=== PATIENT | male | born 1940 | race Caucasian/White ===

== ENCOUNTER 2018-11-17 12:23 | Day surgery (SDC) | payer MEDICARE, OTHER ==
[2018-11-17] VITALS (10 sets, daily range): BP systolic 96–154; BP diastolic 54–70
[~2018-11-17] VITALS: Ht 182.9 cm; Wt 115.1 kg
[2018-11-17] MEDS ORDERED: diphenhydrAMINE 25mg capsule PO ONE (12:45)
[2018-11-17] MEDS ORDERED: normal saline 1000ml 1,000 ML IV SCH (12:45)
[2018-11-17] MEDS ORDERED: hydrocortisone sod succ/PF 250mg/2ml inj. IV ONE (12:45)
[2018-11-17 13:19] LABS: BASOPHILS # (AUTO) 0.1 X10'3 (0-0.2); BASOPHILS % (AUTO) 0.9 % (0-1); EOSINOPHILS # (AUTO) 0.2 X10'3 (0-0.9); EOSINOPHILS % (AUTO) 2.5 % (0-6); HEMATOCRIT 42.6 % (42.0-52.0); HEMOGLOBIN 14.1 g/dl (14.0-17.9); LYMPHOCYTES # (AUTO) 1.6 X10'3 (1.1-4.8); LYMPHOCYTES % (AUTO) 22.9 % (21-51); MEAN CORPUSCULAR HEMOGLOBIN 29.9 PG (27.0-31.0); MEAN CORPUSCULAR VOLUME 90.5 FL (78-98); MEAN PLATELET VOLUME 8.3 FL (7.4-10.4); MONOCYTES # (AUTO) 0.7 X10'3 (0-0.9); MONOCYTES % (AUTO) 9.6 % (2-12); NEUTROPHILS # (AUTO) 4.6 X10'3 (1.8-7.7); NEUTROPHILS % (AUTO) 64.1 % (42-75); PLATELET COUNT 147 X10'3 (140-440); RED CELL DISTRIBUTION WIDTH 14.1 % (11.5-14.5); WHITE BLOOD COUNT 7.2 X10'3 (4.5-11.0)
[2018-11-17] MEDS ORDERED: LIDOcaine 1% (10mg/ml)w/preservative injection 20ml MDV ONE (13:24)
[2018-11-17] MEDS ORDERED: fentaNYL/PF 50MCG/1 ML 2ML syringe ONE (13:24)
[2018-11-17] MEDS ORDERED: midazolam 2 mg/2 ml injection ONE ×2 (13:24→14:12)
[2018-11-17] MEDS ORDERED: iohexol 350MG/ML 100ml bottle IV ONE ×2 (13:25→14:12)
[2018-11-17] MEDS ORDERED: iohexol 350 MG/ML 50ML vial IV ONE (13:25)
[2018-11-17 13:29] LABS: ALBUMIN 3.5 G/DL (3.4-5.0); ANION GAP 9 (8-16); BLOOD UREA NITROGEN 19 MG/DL (7-18); BUN/CREATININE RATIO 15.1 (5.4-32.0); CALCIUM 8.4 MG/DL (8.5-10.1); CHLORIDE 108 MMOL/L (99-107); CREATININE 1.26 MG/DL (0.60-1.10); GLUCOSE 94 MG/DL (70-104); MAGNESIUM 1.9 MG/DL (1.5-2.4); POTASSIUM 4.2 MMOL/L (3.5-5.1); SODIUM 143 MMOL/L (135-145); TOTAL CARBON DIOXIDE 26.4 MMOL/L (24-32); eGFR 55 ML/MIN
[2018-11-17] MEDS ORDERED: hydrocortisone sod succ/PF 100mg/2ml inj. IV ONE (13:30)
[2018-11-17] MEDS ORDERED: CLON0.1T PO (13:37)
[2018-11-17] MEDS ORDERED: MULT-1085 PO (13:37)
[2018-11-17] MEDS ORDERED: ANDROGEL (13:37)
[2018-11-17] MEDS ORDERED: ASCO-283 (13:37)
[2018-11-17] MEDS ORDERED: ESOM40SU PO (13:37)
[2018-11-17] MEDS ORDERED: ZOLP5TAB2 PO (13:37)
[2018-11-17] MEDS ORDERED: CALC250T2 PO (13:37)
[2018-11-17] MEDS ORDERED: CETI10CA PO (13:37)
[2018-11-17] MEDS ORDERED: ATOR40TA PO (13:37)
[2018-11-17] MEDS ORDERED: ASPI-611 PO (13:37)
[2018-11-17] MEDS ORDERED: GLUC-133 PO (13:37)
[2018-11-17] MEDS ORDERED: heparin 1,000unit/ml 10ml vial 10 ML ONE (14:10)
[2018-11-17] MEDS ORDERED: ticagrelor 90mg tablet ONE (14:28)
== END 2018-11-17 18:30 | disposition home or self-care (01) ==
LOC: SSTAY O 12:23
PROVIDERS: ATTEND Internal Medicine Cardiovascular Disease
DX: I25.110 Atherosclerotic heart disease of native coronary artery with unstable angina pectoris (principal); E78.5 Hyperlipidemia, unspecified; E11.51 Type 2 diabetes mellitus with diabetic peripheral angiopathy without gangrene; I11.0 Hypertensive heart disease with heart failure; I50.20 Unspecified systolic (congestive) heart failure; Z87.891 Personal history of nicotine dependence
CPT/HCPCS: 36415; 80048; 83735; 85025; 85610; 93005; 93458; 99152; 99153; C1725; C1760; C1769; C1874; C1894; C9600; J1644; J2001; J2250; J3010; J7030; Q0163; Q9967; A4620; A6258; J1720

== ENCOUNTER 2018-11-22 21:12 | Inpatient (IN) | payer MEDICARE, OTHER, BC ==
[~2018-11-22] VITALS: Ht 182.9 cm; Wt 112.0 kg
[~2018-11-22 21:12] MED LIST: ANDROGEL; ASCO-283; ASPI-611 PO; ATOR40TA PO; CALC250T2 PO; CETI10CA PO; CLON0.1T PO; ESOM40SU PO; GLUC-133 PO; MULT-1085 PO; ZOLP5TAB2 PO
[2018-11-22 21:57] LABS: BASOPHILS % (AUTO) 0.2 % (0-1); EOSINOPHILS % (AUTO) 0 % (0-6); HEMATOCRIT 36.5 % (42.0-52.0); HEMOGLOBIN 12.2 g/dl (14.0-17.9); LYMPHOCYTES # (AUTO) 1.4 X10'3 (1.1-4.8); LYMPHOCYTES % (AUTO) 11.1 % (21-51); MEAN CORPUSCULAR HEMOGLOBIN 30.1 PG (27.0-31.0); MEAN CORPUSCULAR HGB CONC 33.5 g/dL (33.0-36.5); MEAN PLATELET VOLUME 8.4 FL (7.4-10.4); MONOCYTES # (AUTO) 1.3 X10'3 (0-0.9); MONOCYTES % (AUTO) 10.5 % (2-12); NEUTROPHILS # (AUTO) 9.5 X10'3 (1.8-7.7); NEUTROPHILS % (AUTO) 78.2 % (42-75); PLATELET COUNT 180 X10'3 (140-440); RED BLOOD COUNT 4.06 X10'6 (4.70-6.10); WHITE BLOOD COUNT 12.2 X10'3 (4.5-11.0)
[2018-11-22 22:08] LABS: PARTIAL THROMBOPLASTIN TIME 25 SECONDS (22-32)
[2018-11-22 22:11] LABS: ALANINE AMINOTRANSFERASE 34 U/L (12-78); ALBUMIN 3.5 G/DL (3.4-5.0); ALKALINE PHOSPHATASE 71 IU/L (46-116); ANION GAP 5 (8-16); ASPARTATE AMINO TRANSFERASE 14 U/L (10-37); BILIRUBIN,TOTAL 1.1 MG/DL (0.1-1.0); BLOOD UREA NITROGEN 27 MG/DL (7-18); BUN/CREATININE RATIO 20.5 (5.4-32.0); CALCIUM 8.8 MG/DL (8.5-10.1); CHLORIDE 103 MMOL/L (99-107); CREATININE 1.32 MG/DL (0.60-1.10); GLUCOSE 99 MG/DL (70-104); POTASSIUM 4.2 MMOL/L (3.5-5.1); SODIUM 138 MMOL/L (135-145); TOTAL CARBON DIOXIDE 29.6 MMOL/L (24-32); TOTAL PROTEIN 7.1 G/DL (6.4-8.2); eGFR 52 ML/MIN
[2018-11-23] VITALS (20 sets, daily range): BP systolic 125–167; BP diastolic 59–83
[2018-11-23] MEDS ORDERED: magnesium hydroxide 30ml (MOM) UD suspension PO PRN (00:20)
[2018-11-23] MEDS ORDERED: ondansetron/PF 4mg/2ml inj IV PRN ×2 (00:20→11:45)
[2018-11-23] MEDS ORDERED: acetaminophen 325mg tablet PO PRN ×2 (00:20)
[2018-11-23] MEDS ORDERED: mag hydrox/Alum hydrox/simeth 30ml oral suspension PO PRN (00:20)
[2018-11-23] MEDS ORDERED: TICA90TA PO (00:24)
[2018-11-23] MEDS: normal saline 1000ml 1,000 ML IV SCH ×3 (00:29→16:06)
--- NOTE | 2018-11-23 06:13 | NUR ---
Problems reprioritized. Patient report given, questions answered & plan of care reviewed with Blessing HENRY.
--- NOTE | 2018-11-23 10:49 | NUR ---
Patient left unit to CT at this time via wheelchair accompanied by production technician
[2018-11-23] MEDS ORDERED: ringers solution, lacted 1,000 ML IV SCH (11:41)
[2018-11-23] MEDS ORDERED: ESOMEPRAZOLE 40 MG VIAL IV STA (11:43)
[2018-11-23] MEDS ORDERED: meperidine/PF 25mg/ml syringe IV PRN ×3 (11:45)
[2018-11-23] MEDS ORDERED: morphine 4 MG/ML inj SYRINge IV PRN ×2 (11:45)
[2018-11-23] MEDS ORDERED: proCHLORperazine 10 MG/2 ml inj IV PRN (11:45)
[2018-11-23] MEDS ORDERED: ceFAZolin 1GM/D5W- ADD-VANTAGE 50 ML IV SCH (11:45)
[2018-11-23] MEDS ORDERED: cefazolin/dext.iso 2gm/100ml 100 ML IV ONE (11:58)
[2018-11-23] MEDS ORDERED: heparin 10,000 units/1 ML INJ ONE (12:04)
[2018-11-23] MEDS ORDERED: ceFAZolin 1000mg inj ONE (12:04)
[2018-11-23] MEDS ORDERED: LIDOcaine 1% (10mg/ml) 2ml vial ONE (12:08)
[2018-11-23] MEDS ORDERED: ceFAZolin 2gm in dextrose, iso 100 ML IV ONE (12:10)
[2018-11-23 12:15] LABS: BASOPHILS % (AUTO) 0.4 % (0-1); EOSINOPHILS % (AUTO) 0.4 % (0-6); HEMATOCRIT 35.1 % (42.0-52.0); HEMOGLOBIN 12.1 g/dl (14.0-17.9); LYMPHOCYTES # (AUTO) 1.7 X10'3 (1.1-4.8); LYMPHOCYTES % (AUTO) 18.5 % (21-51); MEAN CORPUSCULAR HEMOGLOBIN 30.3 PG (27.0-31.0); MEAN CORPUSCULAR HGB CONC 34.3 g/dL (33.0-36.5); MEAN CORPUSCULAR VOLUME 88.3 FL (78-98); MONOCYTES # (AUTO) 1.2 X10'3 (0-0.9); MONOCYTES % (AUTO) 12.8 % (2-12); NEUTROPHILS # (AUTO) 6.2 X10'3 (1.8-7.7); NEUTROPHILS % (AUTO) 67.9 % (42-75); PLATELET COUNT 171 X10'3 (140-440); RED BLOOD COUNT 3.98 X10'6 (4.70-6.10); RED CELL DISTRIBUTION WIDTH 14.3 % (11.5-14.5); WHITE BLOOD COUNT 9.1 X10'3 (4.5-11.0)
--- NOTE | 2018-11-23 12:21 | NUR ---
Patient left to OR at this time via bed.
[2018-11-23 12:27] LABS: PARTIAL THROMBOPLASTIN TIME 25 SECONDS (22-32)
[2018-11-23 12:29] LABS: ALANINE AMINOTRANSFERASE 32 U/L (12-78); ALBUMIN 3.1 G/DL (3.4-5.0); ALKALINE PHOSPHATASE 62 IU/L (46-116); ANION GAP 6 (8-16); ASPARTATE AMINO TRANSFERASE 11 U/L (10-37); BILIRUBIN,TOTAL 1.1 MG/DL (0.1-1.0); BLOOD UREA NITROGEN 29 MG/DL (7-18); CALCIUM 8.7 MG/DL (8.5-10.1); CHLORIDE 106 MMOL/L (99-107); CREATININE 1.26 MG/DL (0.60-1.10); GLUCOSE 88 MG/DL (70-104); POTASSIUM 3.8 MMOL/L (3.5-5.1); SODIUM 140 MMOL/L (135-145); TOTAL CARBON DIOXIDE 28.4 MMOL/L (24-32); TOTAL PROTEIN 6.2 G/DL (6.4-8.2); eGFR 55 ML/MIN
[2018-11-23] MEDS ORDERED: propofol inj 20 ML IV ONE (12:44)
[2018-11-23] MEDS ORDERED: LIDOcaine 2% (20mg/ml) 5ml vial ONE (12:44)
[2018-11-23] MEDS ORDERED: midazolam 2 mg/2 ml injection ONE (12:44)
[2018-11-23] MEDS ORDERED: fentaNYL /PF 50mcg/ml 5ml ampule ONE (12:44)
[2018-11-23] MEDS ORDERED: dexamethasone sod phosphate 4mg/ml inj. ONE (13:04)
[2018-11-23] MEDS ORDERED: ondansetron/PF 4mg/2ml inj ONE (13:04)
[2018-11-23] MEDS ORDERED: BUPIVAcaine/PF 2.5 mg/ml (0.25%) 30ml vial ONE (13:43)
[2018-11-23] MEDS ORDERED: HYDROcodone/acetaminophen 10/325mg tab PO PRN (13:50)
--- NOTE | 2018-11-23 14:00 | NUR ---
Received from OR via , accompanied by Anesthesiologist DR COSBY and report given by Anesthesiolgist. AWAKENS TO VOICE. VITALS STABLE. DRESSING DI. NAEL PAIN. PALPABLE RT PEDAL PULSE.
--- NOTE | 2018-11-23 14:40 | NUR ---
Report called to receiving nurse. Transferred via BED Belongings . Special Issues communicated to receiving nurse. AWAKE AND ORIENTED. VITALS STABLE. DRESSING DI. NAEL PAIN. TO SURGICAL RM 354C AT THIS TIME.
[2018-11-23] MEDS ORDERED: morphine 2 MG/ML inj. syringe IV PRN (15:00)
[2018-11-23] MEDS: HYDROcodone/acetaminophen 5mg/325mg tablet PO PRN (15:42)
[2018-11-23] MEDS: ceFAZolin 1GM/D5W- ADD-VANTAGE 50 ML IV SCH ×2 (16:40→23:39)
[2018-11-23] MEDS ORDERED: zolpidem 5mg tablet PO PRN (17:35)
--- NOTE | 2018-11-23 18:34 | NUR ---
Received report from Blessing HENRY pt is awake and alert eating dinner in no apparent distress
[2018-11-23] MEDS: cloNIDine 0.1 mg tablet PO SCH (19:47)
[2018-11-23] MEDS: ticagrelor 90mg tablet PO SCH (19:47)
[2018-11-23] MEDS: HYDROcodone/acetaminophen 10/325mg tab PO PRN ×2 (19:47→23:39)
[2018-11-24] MEDS: normal saline 1000ml 1,000 ML IV SCH ×2 (01:45→12:06)
[2018-11-24] MEDS: HYDROcodone/acetaminophen 10/325mg tab PO PRN ×3 (03:53→13:21)
[2018-11-24 06:08] LABS: BASOPHILS % (AUTO) 0.1 % (0-1); EOSINOPHILS % (AUTO) 0 % (0-6); HEMATOCRIT 31.6 % (42.0-52.0); HEMOGLOBIN 10.7 g/dl (14.0-17.9); LYMPHOCYTES # (AUTO) 0.7 X10'3 (1.1-4.8); LYMPHOCYTES % (AUTO) 6.6 % (21-51); MEAN CORPUSCULAR HEMOGLOBIN 30.2 PG (27.0-31.0); MEAN CORPUSCULAR HGB CONC 33.9 g/dL (33.0-36.5); MEAN PLATELET VOLUME 8.3 FL (7.4-10.4); MONOCYTES # (AUTO) 1.4 X10'3 (0-0.9); MONOCYTES % (AUTO) 12.8 % (2-12); NEUTROPHILS # (AUTO) 9.1 X10'3 (1.8-7.7); NEUTROPHILS % (AUTO) 80.5 % (42-75); PLATELET COUNT 171 X10'3 (140-440); RED BLOOD COUNT 3.55 X10'6 (4.70-6.10); WHITE BLOOD COUNT 11.3 X10'3 (4.5-11.0)
--- NOTE | 2018-11-24 06:15 | NUR ---
Gave report to Georgette HENRY pt is resting in no apparent distress, call light and items of freq use within reach.
[2018-11-24 06:32] LABS: ALBUMIN 2.7 G/DL (3.4-5.0); ANION GAP 7 (8-16); BLOOD UREA NITROGEN 26 MG/DL (7-18); BUN/CREATININE RATIO 21.1 (5.4-32.0); CALCIUM 7.9 MG/DL (8.5-10.1); CHLORIDE 105 MMOL/L (99-107); CREATININE 1.23 MG/DL (0.60-1.10); GLUCOSE 118 MG/DL (70-104); POTASSIUM 4.2 MMOL/L (3.5-5.1); SODIUM 137 MMOL/L (135-145); TOTAL CARBON DIOXIDE 25.2 MMOL/L (24-32); eGFR 57 ML/MIN
[2018-11-24 07:13] VITALS: BP 121/60
[2018-11-24] MEDS: cloNIDine 0.1 mg tablet PO SCH ×2 (07:51→19:20)
[2018-11-24] MEDS: cetirizine 10mg tablet PO SCH (07:51)
[2018-11-24] MEDS: atorvastatin 20mg tablet PO SCH (07:52)
[2018-11-24] MEDS: ticagrelor 90mg tablet PO SCH ×2 (07:53→19:19)
[2018-11-24] MEDS: pantoprazole 40mg Tablet.DR PO SCH (07:53)
[2018-11-24] MEDS: aspirin 81mg tablet.DR PO SCH (07:53)
[2018-11-24] MEDS: multivitamins, therapeutics tablet PO SCH (07:53)
[2018-11-24] MEDS ORDERED: CALCIUM CITRATE 250 MG PO SCH (08:00)
[2018-11-24] MEDS ORDERED: non-formulary drug (Gluc 2KCL/Chondr/Coll Hy/Hy Ac (Glucosamine & Chondroitin Cap) 1 EACH) PO SCH (08:00)
--- NOTE | 2018-11-24 18:01 | NUR ---
Problems reprioritized. Patient report given, questions answered & plan of care reviewed with CARL Turner.
--- NOTE | 2018-11-24 18:16 | NUR ---
Received report from Georgette HENRY pt awake and alert eating dinner in no apparent distress
[2018-11-24] MEDS: HYDROcodone/acetaminophen 5mg/325mg tablet PO PRN ×2 (18:26→23:55)
[2018-11-24 19:00] VITALS: BP 113/58
[2018-11-24] MEDS: docusate sod 100mg capsule PO SCH (19:19)
[2018-11-25] VITALS: BP 140/55
[2018-11-25 06:00] LABS: BASOPHILS % (AUTO) 0.3 % (0-1); EOSINOPHILS # (AUTO) 0.1 X10'3 (0-0.9); EOSINOPHILS % (AUTO) 1.6 % (0-6); HEMATOCRIT 31.4 % (42.0-52.0); HEMOGLOBIN 10.7 g/dl (14.0-17.9); LYMPHOCYTES # (AUTO) 1.4 X10'3 (1.1-4.8); LYMPHOCYTES % (AUTO) 15.7 % (21-51); MEAN CORPUSCULAR HEMOGLOBIN 30.5 PG (27.0-31.0); MEAN CORPUSCULAR VOLUME 89.7 FL (78-98); MEAN PLATELET VOLUME 8.1 FL (7.4-10.4); MONOCYTES # (AUTO) 1.3 X10'3 (0-0.9); MONOCYTES % (AUTO) 14.5 % (2-12); NEUTROPHILS % (AUTO) 67.9 % (42-75); PLATELET COUNT 169 X10'3 (140-440); RED CELL DISTRIBUTION WIDTH 14.2 % (11.5-14.5); WHITE BLOOD COUNT 8.9 X10'3 (4.5-11.0)
--- NOTE | 2018-11-25 06:26 | NUR ---
Gave report to Jane HENRY pt is resting on RA in no apparent distress, call light and items of freq use within reach.
[2018-11-25 06:39] LABS: ALBUMIN 2.7 G/DL (3.4-5.0); ANION GAP 9 (8-16); BLOOD UREA NITROGEN 28 MG/DL (7-18); CALCIUM 8.1 MG/DL (8.5-10.1); CHLORIDE 106 MMOL/L (99-107); CREATININE 1.47 MG/DL (0.60-1.10); GLUCOSE 103 MG/DL (70-104); POTASSIUM 4.3 MMOL/L (3.5-5.1); SODIUM 143 MMOL/L (135-145); TOTAL CARBON DIOXIDE 27.8 MMOL/L (24-32); eGFR 46 ML/MIN
[2018-11-25 07:20] VITALS: BP 112/55
[2018-11-25] MEDS: cetirizine 10mg tablet PO SCH (07:46)
[2018-11-25] MEDS: atorvastatin 20mg tablet PO SCH (07:46)
[2018-11-25] MEDS: aspirin 81mg tablet.DR PO SCH (07:46)
[2018-11-25] MEDS: ticagrelor 90mg tablet PO SCH ×2 (07:46→19:27)
[2018-11-25] MEDS: docusate sod 100mg capsule PO SCH ×2 (07:46→19:27)
[2018-11-25] MEDS: multivitamins, therapeutics tablet PO SCH (07:46)
[2018-11-25] MEDS: pantoprazole 40mg Tablet.DR PO SCH (07:46)
[2018-11-25] MEDS: cloNIDine 0.1 mg tablet PO SCH ×2 (07:46→19:27)
[2018-11-25 11:00] VITALS: BP 111/76
--- NOTE | 2018-11-25 11:12 | NUR ---
Spoke with Dr Nation and received orders to discontinue tele monitor. PCU artist relationship manager
--- NOTE | 2018-11-25 18:09 | NUR ---
Problems reprioritized. Patient report given, questions answered & plan of care reviewed with CARL Vazquez.
--- NOTE | 2018-11-25 18:14 | NUR ---
Received report from Jane HENRY pt is awake and alert eating dinner in no apparent distress, call light and items of freq use within reach
[2018-11-25 19:00] VITALS: BP 106/48
[2018-11-25] MEDS: magnesium hydroxide 30ml (MOM) UD suspension PO SCH (19:27)
[2018-11-25] MEDS: cephalexin 500mg capsule PO SCH (19:27)
--- NOTE | 2018-11-25 20:30 | NUR ---
Patient's daughter, Nicole, called and requested update. Notified Yue. Provided info that the patient ate and walked, appears to be doing well. States she will call back in 30 min to 1 hour to say good night to him. Will continue to monitor.
[2018-11-26 00:13] VITALS: BP 120/57
[2018-11-26] MEDS: cephalexin 500mg capsule PO SCH ×4 (01:03→19:50)
[2018-11-26 04:58] LABS: BASOPHILS # (AUTO) 0.1 X10'3 (0-0.2); BASOPHILS % (AUTO) 0.6 % (0-1); EOSINOPHILS # (AUTO) 0.3 X10'3 (0-0.9); EOSINOPHILS % (AUTO) 2.7 % (0-6); HEMATOCRIT 31.5 % (42.0-52.0); HEMOGLOBIN 10.8 g/dl (14.0-17.9); LYMPHOCYTES # (AUTO) 1.4 X10'3 (1.1-4.8); LYMPHOCYTES % (AUTO) 14.4 % (21-51); MEAN CORPUSCULAR HEMOGLOBIN 30.7 PG (27.0-31.0); MEAN CORPUSCULAR HGB CONC 34.2 g/dL (33.0-36.5); MEAN PLATELET VOLUME 7.7 FL (7.4-10.4); MONOCYTES # (AUTO) 1.4 X10'3 (0-0.9); MONOCYTES % (AUTO) 14.1 % (2-12); NEUTROPHILS # (AUTO) 6.7 X10'3 (1.8-7.7); NEUTROPHILS % (AUTO) 68.2 % (42-75); PLATELET COUNT 173 X10'3 (140-440); RED CELL DISTRIBUTION WIDTH 14.4 % (11.5-14.5); WHITE BLOOD COUNT 9.8 X10'3 (4.5-11.0)
[2018-11-26 05:12] LABS: ALBUMIN 2.7 G/DL (3.4-5.0); ANION GAP 8 (8-16); BLOOD UREA NITROGEN 27 MG/DL (7-18); BUN/CREATININE RATIO 22.3 (5.4-32.0); CALCIUM 8.2 MG/DL (8.5-10.1); CHLORIDE 107 MMOL/L (99-107); CREATININE 1.21 MG/DL (0.60-1.10); GLUCOSE 100 MG/DL (70-104); POTASSIUM 4.3 MMOL/L (3.5-5.1); SODIUM 142 MMOL/L (135-145); TOTAL CARBON DIOXIDE 27.5 MMOL/L (24-32); eGFR 58 ML/MIN
--- NOTE | 2018-11-26 06:23 | NUR ---
GAve report to Marilyn HENRY pt is in no apparent distress, call light and items of freq use within reach.
--- NOTE | 2018-11-26 07:01 | NUR ---
Patient in room [facility]. I have received report from MARGY HENRY and had the opportunity to ask questions and assume patient care.
[2018-11-26 07:04] VITALS: BP 91/60
[2018-11-26] MEDS: pantoprazole 40mg Tablet.DR PO SCH (07:19)
[2018-11-26] MEDS: docusate sod 100mg capsule PO SCH ×2 (07:19→19:51)
[2018-11-26] MEDS: magnesium hydroxide 30ml (MOM) UD suspension PO SCH ×2 (07:19→19:50)
[2018-11-26] MEDS: aspirin 81mg tablet.DR PO SCH (07:19)
[2018-11-26] MEDS: atorvastatin 20mg tablet PO SCH (07:19)
[2018-11-26] MEDS: cetirizine 10mg tablet PO SCH (07:19)
[2018-11-26] MEDS: multivitamins, therapeutics tablet PO SCH (07:20)
[2018-11-26] MEDS: cloNIDine 0.1 mg tablet PO SCH ×2 (07:20→19:50)
[2018-11-26] MEDS: ticagrelor 90mg tablet PO SCH ×2 (07:20→19:50)
--- NOTE | 2018-11-26 08:11 | NUR ---
SPOKE WITH DAUGHTER. SHE HAD QUESTIONS ABOUT PT GOING HOME ON [employer] DEVICE. ANSWERED HER QUESTIONS. SHE ALSO ASKED FOR PT TO HAVE SPONGE BATH. WILL NOTIFY TECH
--- NOTE | 2018-11-26 14:41 | NUR ---
heart healthy diet consult: Pt/daughter request diet ed prior to d/c. Pt/daughter seen by MARQUEZ for heart healthy diet ed. Pt had question regarding food interactions w/ current blood thinner; RD encouraged pt current medication only interacts w/ grapefruit. Pt daughter will be taking care of pt upon d/c. Pt struggled most w/ limitation of added Na and choosing lower Na food options. RD reviewed alternative food options as well as seasonings. RD contact information provided and encouraged pt/daughter to call if any questions. Addendum: 11/26/18 at [address] Amended: Links added.
[2018-11-26] MEDS ORDERED: magnesium citrate 296ml oral solution PO ONE (15:00)
[2018-11-26 17:37] LABS: CLARITY,URINE CLEAR (Clear); COLOR,URINE YELLOW (Yellow); GLUCOSE, URINE NEGATIVE (Neg); KETONES,URINE NEGATIVE (Neg); LEUKOCYTE ESTERASE ,URINE NEGATIVE (Neg); NITRITES, URINE NEGATIVE (Neg); OCCULT BLOOD,URINE LARGE (Neg); PROTEIN,URINE NEGATIVE (Neg); UROBILINOGEN,URINE 0.2 E.U/dL (0.2-1.0)
[2018-11-26 17:41] LABS: UA COLLECTION TYPE URINAL
[2018-11-26 17:43] LABS: BACTERIA,URINE NONE SEEN /HPF (Neg); MUCUS STRANDS NONE SEEN /LPF (Neg); RBC,URINE TNTC /HPF (0-2); SQUAMOUS EPITHELIAL CELL,UR NONE SEEN /LPF (FEW); WBC,URINE NONE SEEN /HPF (0-4)
--- NOTE | 2018-11-26 18:04 | NUR ---
GAVE REPORT TO CHLOE HENYR
--- NOTE | 2018-11-26 18:10 | NUR ---
Patient in room [facility]. I have received report from Marilyn HENRY and had the opportunity to ask questions and assume patient care.
[2018-11-26 19:50] VITALS: BP 127/72
[2018-11-26 20:00] VITALS: BP 119/62
[2018-11-27] VITALS: BP 121/67
[2018-11-27] MEDS: cephalexin 500mg capsule PO SCH ×3 (02:03→13:50)
[2018-11-27 05:32] LABS: BASOPHILS % (AUTO) 0.4 % (0-1); EOSINOPHILS # (AUTO) 0.3 X10'3 (0-0.9); EOSINOPHILS % (AUTO) 2.3 % (0-6); HEMATOCRIT 32.3 % (42.0-52.0); HEMOGLOBIN 10.8 g/dl (14.0-17.9); LYMPHOCYTES # (AUTO) 1.4 X10'3 (1.1-4.8); LYMPHOCYTES % (AUTO) 12.3 % (21-51); MEAN CORPUSCULAR HEMOGLOBIN 30.2 PG (27.0-31.0); MEAN CORPUSCULAR HGB CONC 33.4 g/dL (33.0-36.5); MEAN CORPUSCULAR VOLUME 90.3 FL (78-98); MEAN PLATELET VOLUME 7.7 FL (7.4-10.4); MONOCYTES # (AUTO) 1.4 X10'3 (0-0.9); MONOCYTES % (AUTO) 13.1 % (2-12); NEUTROPHILS % (AUTO) 71.9 % (42-75); PLATELET COUNT 200 X10'3 (140-440); RED BLOOD COUNT 3.58 X10'6 (4.70-6.10); RED CELL DISTRIBUTION WIDTH 14.5 % (11.5-14.5); WHITE BLOOD COUNT 11.1 X10'3 (4.5-11.0)
[2018-11-27 05:35] LABS: ALBUMIN 2.7 G/DL (3.4-5.0); ANION GAP 4 (8-16); BLOOD UREA NITROGEN 27 MG/DL (7-18); BUN/CREATININE RATIO 22.9 (5.4-32.0); CALCIUM 8.5 MG/DL (8.5-10.1); CHLORIDE 104 MMOL/L (99-107); CREATININE 1.18 MG/DL (0.60-1.10); GLUCOSE 109 MG/DL (70-104); POTASSIUM 4.4 MMOL/L (3.5-5.1); SODIUM 137 MMOL/L (135-145); TOTAL CARBON DIOXIDE 29.2 MMOL/L (24-32); eGFR 60 ML/MIN
--- NOTE | 2018-11-27 06:20 | NUR ---
Patient in room [facility]. I have received report from Deepthi HENRY and had the opportunity to ask questions and assume patient care.
--- NOTE | 2018-11-27 06:31 | NUR ---
Problems reprioritized. Patient report given, questions answered & plan of care reviewed with Ila HENRY.
[2018-11-27 07:11] VITALS: BP 104/53
[2018-11-27] MEDS: multivitamins, therapeutics tablet PO SCH (07:44)
[2018-11-27] MEDS: aspirin 81mg tablet.DR PO SCH (07:44)
[2018-11-27] MEDS: cloNIDine 0.1 mg tablet PO SCH (07:44)
[2018-11-27] MEDS: ticagrelor 90mg tablet PO SCH (07:44)
[2018-11-27] MEDS: atorvastatin 20mg tablet PO SCH (07:44)
[2018-11-27] MEDS: pantoprazole 40mg Tablet.DR PO SCH (07:44)
[2018-11-27] MEDS: magnesium hydroxide 30ml (MOM) UD suspension PO SCH (07:45)
[2018-11-27] MEDS: docusate sod 100mg capsule PO SCH (07:45)
[2018-11-27] MEDS: cetirizine 10mg tablet PO SCH (07:47)
--- NOTE | 2018-11-27 10:49 | NUR ---
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 Pt currently on CHO controlled diet with documented 75-100% PO intake throughout LOS meeting nutrient needs. LBM 11/27. No nutrition diagnosis at this time. Will continue to follow. Recommendations: 1) Diet change to heart healthy given no documented hx of DM; BG well controlled with range 88-118 throughout LOS 2) Wt per rx Addendum: 11/27/18 at [address] Amended: Links added.
[2018-11-27 11:32] VITALS: BP 116/58
--- NOTE | 2018-11-27 14:09 | NUR ---
Dr. Nava in to see patient. aware of hematuria yesterday, none noted today. MD stated to followup with PCP. stated patient okay to discharge with Prevana. to take prevena off on Saturday. F/U with Dr. Nava on Saturday.
--- NOTE | 2018-11-27 16:05 | NUR ---
Patient discharged with all belongings. W/C to front lobby. Family to take pt home.
== END 2018-11-27 15:50 | disposition home health service (06) | DRG 253 ==
LOC: ER 21:16 → SUR 3N 11-23 01:06 → OBSVTOIN 11-23 01:06
PROVIDERS: ADMIT Hospitalist; ATTEND Internal Medicine
PROC: 3E033GC Introduction of Other Therapeutic Substance into Peripheral Vein, Percutaneous Approach (ICD-10-PCS; 2018-11-23)
PROC: 04QK0ZZ Repair Right Femoral Artery, Open Approach (ICD-10-PCS; principal; 2018-11-23 12:35)
DX: T81.718A Complication of other artery following a procedure, not elsewhere classified, initial encounter (principal); I74.2 Embolism and thrombosis of arteries of the upper extremities; N17.9 Acute kidney failure, unspecified; I72.4 Aneurysm of artery of lower extremity; E11.9 Type 2 diabetes mellitus without complications; G47.00 Insomnia, unspecified; I25.10 Atherosclerotic heart disease of native coronary artery without angina pectoris; R31.9 Hematuria, unspecified; K21.9 Gastro-esophageal reflux disease without esophagitis; K59.00 Constipation, unspecified; N28.9 Disorder of kidney and ureter, unspecified; Y84.0 Cardiac catheterization as the cause of abnormal reaction of the patient, or of later complication, without mention of misadventure at the time of the procedure; N40.0 Benign prostatic hyperplasia without lower urinary tract symptoms; Z88.1 Allergy status to other antibiotic agents; Z91.041 Radiographic dye allergy status; Z79.82 Long term (current) use of aspirin; Z79.899 Other long term (current) drug therapy; Z87.891 Personal history of nicotine dependence; Z90.79 Acquired absence of other genital organ(s); Z95.5 Presence of coronary angioplasty implant and graft; Y92.89 Other specified places as the place of occurrence of the external cause
CPT/HCPCS: 36415; 71045; 72192; 80048; 80053; 81001; 84484; 85025; 85610; 85730; 86885; 86900; 86901; 87081; 88304; 93005; 96374; 97116; 97161; 97530; 99285; A4618; A7000; G0378; J0690; J1100; J1644; J2001; J2250; J2270; J2405; J2704; J3010; J3490; J7030; J7040; J7060; J7120

== ENCOUNTER 2018-12-05 19:01 | Inpatient (IN) | payer MEDICARE, OTHER ==
[~2018-12-05] VITALS: Ht 167.6 cm; Wt 121.0 kg
[~2018-12-05 19:01] MED LIST changes: +TICA90TA PO
--- NOTE | 2018-12-05 20:23 | NUR ---
SOREN CALLED BACK AT 20:23. STATED HE WOULD BE IN SOON
[2018-12-05 20:30] LABS: BASOPHILS # (AUTO) 0.1 X10'3 (0-0.2); EOSINOPHILS # (AUTO) 0.2 X10'3 (0-0.9); EOSINOPHILS % (AUTO) 1.7 % (0-6); HEMATOCRIT 37.2 % (42.0-52.0); HEMOGLOBIN 12.2 g/dl (14.0-17.9); LYMPHOCYTES # (AUTO) 1.1 X10'3 (1.1-4.8); LYMPHOCYTES % (AUTO) 10.1 % (21-51); MEAN CORPUSCULAR HEMOGLOBIN 29.4 PG (27.0-31.0); MEAN CORPUSCULAR HGB CONC 32.8 g/dL (33.0-36.5); MEAN CORPUSCULAR VOLUME 89.6 FL (78-98); MEAN PLATELET VOLUME 7.3 FL (7.4-10.4); MONOCYTES # (AUTO) 1.2 X10'3 (0-0.9); MONOCYTES % (AUTO) 11.1 % (2-12); NEUTROPHILS # (AUTO) 8.5 X10'3 (1.8-7.7); NEUTROPHILS % (AUTO) 76.1 % (42-75); PLATELET COUNT 214 X10'3 (140-440); RED BLOOD COUNT 4.15 X10'6 (4.70-6.10); WHITE BLOOD COUNT 11.1 X10'3 (4.5-11.0)
--- NOTE | 2018-12-05 21:08 | NUR ---
PRODUCTION CONTROL EXPERT AT BEDSIDE NOW FOR US
[2018-12-05 21:11] LABS: ALBUMIN/GLOBULIN RATIO 0.8 (1.1-1.5); ANION GAP 6 (8-16); ASPARTATE AMINO TRANSFERASE 16 U/L (10-37); BILIRUBIN,TOTAL 0.9 MG/DL (0.1-1.0); BLOOD UREA NITROGEN 30 MG/DL (7-18); BUN/CREATININE RATIO 20.3 (5.4-32.0); CALCIUM 8.8 MG/DL (8.5-10.1); CHLORIDE 104 MMOL/L (99-107); CREATININE 1.48 MG/DL (0.60-1.10); GLUCOSE 99 MG/DL (70-104); POTASSIUM 4.2 MMOL/L (3.5-5.1); SODIUM 140 MMOL/L (135-145); TOTAL CARBON DIOXIDE 29.7 MMOL/L (24-32); TOTAL PROTEIN 6.6 G/DL (6.4-8.2); eGFR 46 ML/MIN
[2018-12-05 21:12] LABS: ALANINE AMINOTRANSFERASE 27 U/L (12-78); ALKALINE PHOSPHATASE 77 IU/L (46-116)
--- NOTE | 2018-12-05 21:23 | NUR ---
PAGED [facility] TO CALL Adam PURI AT 21:23
[2018-12-05] MEDS ORDERED: vancomycin/NS 1 GM ADD-VANTAGE 250 ML IV ONE (21:50)
--- NOTE | 2018-12-05 22:16 | NUR ---
PT UPDATED THAT HE WILL NEED TO BE ADMITTED. PRESLEY PURI REQUESTS WOUND CULTURE. DR. RAE HAS BEEN CONSULTED. RADHA REMAINS AT BEDSIDE.
[2018-12-05] MEDS ORDERED: OMEP40CA13 PO (23:04)
[2018-12-05] MEDS ORDERED: OMEP20CA11 PO (23:04)
[2018-12-05] MEDS ORDERED: TEST75GE TOP (23:04)
--- NOTE | 2018-12-05 23:22 | NUR ---
PT AWAITING HOSPITALIST. DAUGHTER REMAINS AT BEDSIDE PLACED ON 2 LITER NC FOR SATS 88%, NOW 92-94%. pT WITH MINIMAL PAIN TO RIGHT GROIN, ONLY WITH MVOVEMENT.
[2018-12-06] VITALS (8 sets, daily range): BP systolic 102–129; BP diastolic 55–69
[2018-12-06] MEDS ORDERED: HYDROcodone/acetaminophen 10/325mg tab PO PRN
[2018-12-06] MEDS ORDERED: acetaminophen 325mg tablet PO PRN ×2
[2018-12-06] MEDS ORDERED: morphine 2 MG/ML inj. syringe IV PRN
[2018-12-06] MEDS ORDERED: magnesium hydroxide 30ml (MOM) UD suspension PO PRN
[2018-12-06] MEDS ORDERED: mag hydrox/Alum hydrox/simeth 30ml oral suspension PO PRN
--- NOTE | 2018-12-06 01:05 | NUR ---
PATIENT ADMITTED TO ROOM 340B FROM ER FOR CELLULITIS OF THE RIGHT GROIN POST OP WOUND. PLACED COMFORTABLE IN BED. VITAL SIGNS TAKEN AND RECORDED.
[2018-12-06] MEDS: morphine 2 MG/ML inj. syringe IV PRN ×2 (01:26→19:43)
--- NOTE | 2018-12-06 05:46 | NUR ---
PATIENT REQUESTS LEFT BEDSIDE RAIL DOWN. PATIENT ALERT AND ORIENTED.
--- NOTE | 2018-12-06 06:30 | NUR ---
Problems reprioritized. Patient report given, questions answered & plan of care reviewed with LAURIE HENRY.
--- NOTE | 2018-12-06 06:53 | NUR ---
Patient in room [facility]. I have received report from Lizett HENRY and had the opportunity to ask questions and assume patient care.
[2018-12-06] MEDS: TESTOSTERONE TP SCH (08:00)
[2018-12-06] MEDS ORDERED: non-formulary drug (Gluc 2KCL/Chondr/Coll Hy/Hy Ac (Glucosamine & Chondroitin Cap) 1 EACH) PO SCH (08:00)
[2018-12-06] MEDS ORDERED: vancomycin/NS 1 GM ADD-VANTAGE 250 ML IV SCH (08:00)
[2018-12-06] MEDS: multivitamins, therapeutics tablet PO SCH (08:07)
[2018-12-06] MEDS: cloNIDine 0.1 mg tablet PO SCH ×2 (08:07→20:14)
[2018-12-06] MEDS: pantoprazole 40mg Tablet.DR PO SCH (08:08)
[2018-12-06] MEDS: cetirizine 10mg tablet PO SCH (08:08)
[2018-12-06] MEDS: atorvastatin 20mg tablet PO SCH (08:08)
[2018-12-06] MEDS: aspirin 81mg tablet.DR PO SCH (08:22)
[2018-12-06] MEDS: ticagrelor 90mg tablet PO SCH ×2 (08:22→20:14)
--- NOTE | 2018-12-06 08:24 | NUR ---
Dr. Haji made rounds talked to the patient about the proposed surgery and also spoke to the patient's daughter on the phone. Patient and daughter both agreed with the plan. Per Dr. Haji, Aspirin and Brilinta are okay to give due to heart stent history. Patient already ate breakfast but will be NPO after the breakfast
[2018-12-06] MEDS ORDERED: ringers solution, lacted 1,000 ML IV SCH (09:53)
[2018-12-06] MEDS ORDERED: ringers solution, lacted 1,000 ML IV ONE (09:53)
[2018-12-06] MEDS ORDERED: hydrALAZINE 20mg/ml inj. IV PRN (09:55)
[2018-12-06] MEDS ORDERED: ondansetron/PF 4mg/2ml inj IV PRN ×2 (09:55)
[2018-12-06] MEDS ORDERED: morphine 4 MG/ML inj SYRINge IV PRN ×2 (09:55)
[2018-12-06] MEDS ORDERED: labetalol 20mg/4ml (5mg/ml) syringe IV PRN (09:55)
[2018-12-06] MEDS ORDERED: fentaNYL/PF 50MCG/1 ML 2ML syringe IV PRN ×2 (09:55)
[2018-12-06] MEDS ORDERED: famotidine 20mg tablet PO ONE (10:15)
--- NOTE | 2018-12-06 10:23 | NUR ---
Report given to the SHAKE BACKBOARD NOTCHER. Vancomycin IV infusing
[2018-12-06] MEDS ORDERED: LIDOcaine 1% 30ml preserv. free vial ONE (11:03)
[2018-12-06] MEDS ORDERED: fentaNYL/PF 50MCG/1 ML 2ML syringe ONE (11:07)
[2018-12-06] MEDS ORDERED: MIDAZolam 5mg/5ml vial ONE (11:08)
--- NOTE | 2018-12-06 11:45 | NUR ---
Received from OR via , accompanied by Anesthesiologist DR WALKER and report given by Anesthesiolgist. PT IS AWAKE, ALERT, MOVING EXT X 4, SKIN WARM AND PINK, NO C/O PAIN, WOUND VAC WITH ONE SPONGE TO 125MMHG, SERSANQ DRAINAGE, ONE SPONGE IN WOUND, COLEMAN ICE WATER, PIV LEFT AC 18G WITH NS 100ML/HR, SCD'S, VSS.
--- NOTE | 2018-12-06 12:11 | NUR ---
Report called to receiving nurse. Transferred via BED Belongings . Special Issues communicated to receiving nurse NEEL HENRY. PT IS AWAKE, ALERT, VISITING WITH HIS DAUGHTER, NO C/O PAIN, WOUND VAC 125MMHG, SITE CD, COLEMAN ICE WATER, SCD'S ON, NO C/O PAIN, PIV PATENT WITH NS 100ML/HR, PT MEETS DISCHARGE CRITERIA.
[2018-12-06] MEDS: normal saline 1000ml 1,000 ML IV SCH ×2 (16:11→21:20)
--- NOTE | 2018-12-06 18:38 | NUR ---
Problems reprioritized. Patient report given, questions answered & plan of care reviewed with Pat RN.
[2018-12-06] MEDS: lactobacillus rhamnosus 10,000 MMU CELLS/CAPSULE PO SCH (20:14)
[2018-12-07] VITALS: BP 129/57
[2018-12-07 04:00] VITALS: BP 131/61
[2018-12-07] MEDS: normal saline 1000ml 1,000 ML IV SCH ×2 (05:33→20:39)
[2018-12-07 05:58] LABS: ALBUMIN 2.6 G/DL (3.4-5.0); ANION GAP 6 (8-16); BLOOD UREA NITROGEN 26 MG/DL (7-18); BUN/CREATININE RATIO 21.7 (5.4-32.0); CALCIUM 7.9 MG/DL (8.5-10.1); CHLORIDE 107 MMOL/L (99-107); GLUCOSE 105 MG/DL (70-104); POTASSIUM 4.1 MMOL/L (3.5-5.1); SODIUM 139 MMOL/L (135-145); TOTAL CARBON DIOXIDE 25.8 MMOL/L (24-32); eGFR 58 ML/MIN
--- NOTE | 2018-12-07 06:16 | NUR ---
Patient in room [facility]. I have received report from Pat RN and had the opportunity to ask questions and assume patient care.
[2018-12-07 06:17] LABS: BASOPHILS % (AUTO) 0.5 % (0-1); EOSINOPHILS # (AUTO) 0.2 X10'3 (0-0.9); EOSINOPHILS % (AUTO) 2.3 % (0-6); HEMATOCRIT 34.3 % (42.0-52.0); HEMOGLOBIN 11.6 g/dl (14.0-17.9); LYMPHOCYTES # (AUTO) 0.9 X10'3 (1.1-4.8); LYMPHOCYTES % (AUTO) 9.3 % (21-51); MEAN CORPUSCULAR HEMOGLOBIN 30.6 PG (27.0-31.0); MEAN CORPUSCULAR HGB CONC 33.9 g/dL (33.0-36.5); MEAN CORPUSCULAR VOLUME 90.3 FL (78-98); MEAN PLATELET VOLUME 7.7 FL (7.4-10.4); MONOCYTES # (AUTO) 1.3 X10'3 (0-0.9); MONOCYTES % (AUTO) 13.6 % (2-12); NEUTROPHILS # (AUTO) 7.1 X10'3 (1.8-7.7); NEUTROPHILS % (AUTO) 74.3 % (42-75); PLATELET COUNT 181 X10'3 (140-440); WHITE BLOOD COUNT 9.5 X10'3 (4.5-11.0)
[2018-12-07 07:00] VITALS: BP 119/57
[2018-12-07] MEDS: TESTOSTERONE TP SCH (08:00)
[2018-12-07] MEDS: lactobacillus rhamnosus 10,000 MMU CELLS/CAPSULE PO SCH ×2 (08:25→20:39)
[2018-12-07] MEDS: pantoprazole 40mg Tablet.DR PO SCH (08:26)
[2018-12-07] MEDS: ticagrelor 90mg tablet PO SCH ×2 (08:26→20:39)
[2018-12-07] MEDS: multivitamins, therapeutics tablet PO SCH (08:26)
[2018-12-07] MEDS: cetirizine 10mg tablet PO SCH (08:26)
[2018-12-07] MEDS: aspirin 81mg tablet.DR PO SCH (08:26)
[2018-12-07] MEDS: atorvastatin 20mg tablet PO SCH (08:27)
[2018-12-07] MEDS: cloNIDine 0.1 mg tablet PO SCH ×2 (08:27→20:39)
[2018-12-07] MEDS ORDERED: VANCOMYCIN LEVEL IV ONE (09:30)
[2018-12-07 11:00] VITALS: BP 116/69
[2018-12-07] MEDS: piperacillin/tazo 3.375gm/50ml 50 ML IV SCH (15:58)
[2018-12-07] MEDS: morphine 2 MG/ML inj. syringe IV PRN (16:36)
--- NOTE | 2018-12-07 17:23 | NUR ---
Sent a page message to Dr. Nation regarding patient request for stool softener tonight
[2018-12-07 18:00] VITALS: BP 135/50
--- NOTE | 2018-12-07 18:47 | NUR ---
Patient in room [facility]. I have received report from CARL Chavez and had the opportunity to ask questions and assume patient care.
--- NOTE | 2018-12-07 18:54 | NUR ---
Problems reprioritized. Patient report given, questions answered & plan of care reviewed with Shae HENRY.
[2018-12-07] MEDS ORDERED: bisacodyl 5mg tablet.DR PO SCH (20:00)
--- NOTE | 2018-12-07 20:00 | NUR ---
Patient is refusing to walk until an XR has been completed on his foot. Pt states he injured it back in September and he noticed the pain coming back after he went walking earlier today.
[2018-12-07] MEDS ORDERED: bisacodyl 5mg tablet.DR PO PRN (22:15)
[2018-12-08] VITALS: BP 126/52
[2018-12-08] MEDS: piperacillin/tazo 3.375gm/50ml 50 ML IV SCH ×4 (00:06→23:23)
[2018-12-08] MEDS: HYDROcodone/acetaminophen 5mg/325mg tablet PO PRN ×2 (04:28→13:36)
[2018-12-08 05:21] LABS: BASOPHILS % (AUTO) 0.6 % (0-1); EOSINOPHILS # (AUTO) 0.3 X10'3 (0-0.9); EOSINOPHILS % (AUTO) 3.5 % (0-6); HEMATOCRIT 33.3 % (42.0-52.0); HEMOGLOBIN 11.1 g/dl (14.0-17.9); LYMPHOCYTES # (AUTO) 1.2 X10'3 (1.1-4.8); LYMPHOCYTES % (AUTO) 15.2 % (21-51); MEAN CORPUSCULAR HEMOGLOBIN 30.4 PG (27.0-31.0); MEAN CORPUSCULAR HGB CONC 33.5 g/dL (33.0-36.5); MEAN CORPUSCULAR VOLUME 90.7 FL (78-98); MEAN PLATELET VOLUME 7.3 FL (7.4-10.4); MONOCYTES # (AUTO) 1.2 X10'3 (0-0.9); MONOCYTES % (AUTO) 14.9 % (2-12); NEUTROPHILS # (AUTO) 5.3 X10'3 (1.8-7.7); NEUTROPHILS % (AUTO) 65.8 % (42-75); PLATELET COUNT 164 X10'3 (140-440); RED BLOOD COUNT 3.67 X10'6 (4.70-6.10); RED CELL DISTRIBUTION WIDTH 14.8 % (11.5-14.5); WHITE BLOOD COUNT 8.1 X10'3 (4.5-11.0)
[2018-12-08] MEDS: normal saline 1000ml 1,000 ML IV SCH ×2 (05:21→17:59)
[2018-12-08 05:33] LABS: ALBUMIN 2.4 G/DL (3.4-5.0); ANION GAP 8 (8-16); BLOOD UREA NITROGEN 21 MG/DL (7-18); BUN/CREATININE RATIO 17.2 (5.4-32.0); CALCIUM 7.7 MG/DL (8.5-10.1); CHLORIDE 110 MMOL/L (99-107); CREATININE 1.22 MG/DL (0.60-1.10); GLUCOSE 102 MG/DL (70-104); POTASSIUM 3.9 MMOL/L (3.5-5.1); SODIUM 141 MMOL/L (135-145); TOTAL CARBON DIOXIDE 22.8 MMOL/L (24-32); eGFR 57 ML/MIN
--- NOTE | 2018-12-08 06:30 | NUR ---
Patient in room [facility]. I have received report from Shae HENRY and had the opportunity to ask questions and assume patient care.
--- NOTE | 2018-12-08 06:46 | NUR ---
Problems reprioritized. Patient report given, questions answered & plan of care reviewed with CARL Bauman.
[2018-12-08 07:31] VITALS: BP 124/63
[2018-12-08] MEDS: cetirizine 10mg tablet PO SCH (07:54)
[2018-12-08] MEDS: aspirin 81mg tablet.DR PO SCH (07:55)
[2018-12-08] MEDS: ticagrelor 90mg tablet PO SCH ×2 (07:55→19:33)
[2018-12-08] MEDS: cloNIDine 0.1 mg tablet PO SCH ×2 (07:55→19:33)
[2018-12-08] MEDS: lactobacillus rhamnosus 10,000 MMU CELLS/CAPSULE PO SCH ×2 (07:55→19:33)
[2018-12-08] MEDS: multivitamins, therapeutics tablet PO SCH (07:56)
[2018-12-08] MEDS: pantoprazole 40mg Tablet.DR PO SCH (07:56)
[2018-12-08] MEDS: atorvastatin 20mg tablet PO SCH (07:56)
[2018-12-08] MEDS: hydrocortisone 1% cream 28gm TP SCH ×2 (07:57→19:44)
[2018-12-08] MEDS: TESTOSTERONE TP SCH (08:00)
[2018-12-08] MEDS ORDERED: potassium Cl 20 mEq SR tablet PO PRN ×2 (10:15)
[2018-12-08] MEDS ORDERED: magnesium Cl slow-release 64mg tablet PO PRN (10:15)
[2018-12-08] MEDS ORDERED: magnesium 4gm in 100ml NS 100 ML IV PRN (10:15)
[2018-12-08] MEDS ORDERED: potassium CL 10mEq/100ml bag 100 ML IV PRN (10:15)
[2018-12-08 11:00] VITALS: BP 136/59
[2018-12-08] MEDS: morphine 2 MG/ML inj. syringe IV PRN ×2 (11:03→19:34)
--- NOTE | 2018-12-08 12:57 | NUR ---
WOUND INFECTION EDUCATION PROVIDED BY WOUND CARE 1. Patient instructed to call their primary doctor, or go the ED immediately if any of the following symptoms occur: * Increased pain in wound * Increase in drainage from the wound * Redness in the skin surrounding the wound * Warmth in the skin surrounding the wound * Bleeding from the wound * Temperature of 101 or greater 2. If any of these occur while in the hospital tell a nurse immediately. WOUND VAC EDUCATION PROVIDED BY WOUND CARE 1. Patient instructed to call the Wound Center or their Home Health Agency immediately if: * They notice a change in the color or amount of the fluid in the canister. * Their wound looks more red than usual or has a foul smell. * The skin around their wound looks reddened or irritated. * The dressing feels loose or appears to be loose. * They experience any increase or changes in their pain. * The alarm will not turn off. 2. Patient instructed that they should not be disconnected from suction for more than 2 hours at a time. * If they are not able to get the suction back on, they need to remove the dressing and take all of the foam out of the wound. * Then moisten sterile gauze with normal saline and place on/in the wound. * Change the dressing once a day until arrangements have been made to replace the wound vac dressing. 3. Patient instructed to turn the wound vac machine OFF and call 911 or go to the ED immediately if their canister fills rapidly with blood. 4. If any of these occur while in the hospital tell a nurse immediately. Addendum: 12/08/18 at 1258 by Morelia Sierra RN Amended: Links added.
[2018-12-08] MEDS ORDERED: triamcinolone acetonide 40mg/ml inj IM ONE (15:40)
--- NOTE | 2018-12-08 16:00 | NUR ---
Paged orthotics prosthetics assistant for wrist brace ordered by doctor Tushar, did not hear back from Patient Access Coordinator will try again in the morning.
--- NOTE | 2018-12-08 18:30 | NUR ---
Problems reprioritized. Patient report given, questions answered & plan of care reviewed with Phuong HENRY.
--- NOTE | 2018-12-08 18:30 | NUR ---
Received report from Mitul HENRY, assumed care of patient with Phuong HENRY.
[2018-12-08 20:00] VITALS: BP 143/56
[2018-12-08] MEDS: zolpidem 5mg tablet PO PRN (23:23)
[2018-12-09] VITALS: BP 127/57
[2018-12-09] MEDS: normal saline 1000ml 1,000 ML IV SCH ×2 (05:36→20:51)
[2018-12-09 05:56] LABS: ALBUMIN 2.4 G/DL (3.4-5.0); ANION GAP 10 (8-16); BLOOD UREA NITROGEN 18 MG/DL (7-18); BUN/CREATININE RATIO 14.2 (5.4-32.0); CHLORIDE 109 MMOL/L (99-107); CREATININE 1.27 MG/DL (0.60-1.10); GLUCOSE 106 MG/DL (70-104); MAGNESIUM 1.8 MG/DL (1.5-2.4); PHOSPHORUS 2.2 MG/DL (2.3-4.5); POTASSIUM 4.1 MMOL/L (3.5-5.1); SODIUM 140 MMOL/L (135-145); TOTAL CARBON DIOXIDE 21.3 MMOL/L (24-32); eGFR 55 ML/MIN
--- NOTE | 2018-12-09 06:30 | NUR ---
Patient in room [facility]. I have received report from Phuong HENRY and had the opportunity to ask questions and assume patient care.
--- NOTE | 2018-12-09 06:37 | NUR ---
Problems reprioritized. Patient report given, questions answered & plan of care reviewed with CARL Bauman.
[2018-12-09 08:00] VITALS: BP 144/56
[2018-12-09] MEDS: TESTOSTERONE TP SCH (08:00)
[2018-12-09] MEDS: aspirin 81mg tablet.DR PO SCH (08:52)
[2018-12-09] MEDS: cetirizine 10mg tablet PO SCH (08:53)
[2018-12-09] MEDS: lactobacillus rhamnosus 10,000 MMU CELLS/CAPSULE PO SCH ×2 (08:53→19:44)
[2018-12-09] MEDS: pantoprazole 40mg Tablet.DR PO SCH (08:53)
[2018-12-09] MEDS: multivitamins, therapeutics tablet PO SCH (08:53)
[2018-12-09] MEDS: cloNIDine 0.1 mg tablet PO SCH ×2 (08:53→19:44)
[2018-12-09] MEDS: ticagrelor 90mg tablet PO SCH ×2 (08:54→19:44)
[2018-12-09] MEDS: hydrocortisone 1% cream 28gm TP SCH ×2 (08:54→19:47)
[2018-12-09] MEDS: atorvastatin 20mg tablet PO SCH (08:54)
[2018-12-09] MEDS: piperacillin/tazo 3.375gm/50ml 50 ML IV SCH ×2 (08:55→16:09)
[2018-12-09 09:50] LABS: BASOPHILS # (AUTO) 0.1 X10'3 (0-0.2); BASOPHILS % (AUTO) 0.7 % (0-1); EOSINOPHILS # (AUTO) 0.2 X10'3 (0-0.9); EOSINOPHILS % (AUTO) 2.6 % (0-6); HEMOGLOBIN 10.4 g/dl (14.0-17.9); LYMPHOCYTES # (AUTO) 0.6 X10'3 (1.1-4.8); LYMPHOCYTES % (AUTO) 7.3 % (21-51); MEAN CORPUSCULAR HEMOGLOBIN 30.1 PG (27.0-31.0); MEAN CORPUSCULAR HGB CONC 33.4 g/dL (33.0-36.5); MEAN CORPUSCULAR VOLUME 89.9 FL (78-98); MEAN PLATELET VOLUME 7.2 FL (7.4-10.4); MONOCYTES # (AUTO) 0.8 X10'3 (0-0.9); MONOCYTES % (AUTO) 10.6 % (2-12); NEUTROPHILS % (AUTO) 78.8 % (42-75); PLATELET COUNT 163 X10'3 (140-440); RED BLOOD COUNT 3.44 X10'6 (4.70-6.10); RED CELL DISTRIBUTION WIDTH 14.6 % (11.5-14.5); WHITE BLOOD COUNT 7.6 X10'3 (4.5-11.0)
[2018-12-09 11:00] VITALS: BP 122/53
--- NOTE | 2018-12-09 15:21 | NUR ---
Wound consult: Per [facility] notes pt with wound VAC to surgical wound to right groin. Pt seen at bedside provided with written and verbal protein education with RD contact information. Pt denied any ONS or additional protein at this time. Pt on heart healthy diet with documented 75-100% PO intake likely meeting nutrient needs. Pt admitted for infected wound of the right thigh. Pt endorses a good appetite and denies any food allergies or constipation/diarrhea. Pt reports difficulty swallowing when laying flat however reports no issues when sitting up to eat. LBM documented as 12/07 however pt reports 2 BMs today. Will continue to follow. Recommendations: 1) Continue with heart healthy diet 2) Monitor need for ONS/additional protein 3) Routine bowel care 4) Wt per rx Addendum: 12/09/18 at [address] Amended: Links added.
--- NOTE | 2018-12-09 18:30 | NUR ---
Problems reprioritized. Patient report given, questions answered & plan of care reviewed with Phuong HENRY.
[2018-12-09 19:00] VITALS: BP 108/64
[2018-12-09 19:01] VITALS: BP 131/56
--- NOTE | 2018-12-09 20:10 | NUR ---
Problems reprioritized. Patient report given, questions answered & plan of care reviewed with CARL Green.
--- NOTE | 2018-12-09 20:20 | NUR ---
Received report from Phuong HENRY and assumed care of patient. Patient is currently awake and visiting with his daughter. Addendum: 12/10/18 at 0354 by Norma Zee RN I have reviewed previous assessment and agree with findings.
[2018-12-09] MEDS: zolpidem 5mg tablet PO PRN (20:51)
[2018-12-10] VITALS: BP 131/56
[2018-12-10] MEDS: piperacillin/tazo 3.375gm/50ml 50 ML IV SCH ×2 (00:09→08:02)
[2018-12-10 05:17] LABS: ALBUMIN 2.2 G/DL (3.4-5.0); ANION GAP 8 (8-16); BLOOD UREA NITROGEN 17 MG/DL (7-18); BUN/CREATININE RATIO 13.9 (5.4-32.0); CALCIUM 7.7 MG/DL (8.5-10.1); CHLORIDE 111 MMOL/L (99-107); CREATININE 1.22 MG/DL (0.60-1.10); GLUCOSE 104 MG/DL (70-104); MAGNESIUM 1.9 MG/DL (1.5-2.4); PHOSPHORUS 2.6 MG/DL (2.3-4.5); SODIUM 143 MMOL/L (135-145); TOTAL CARBON DIOXIDE 24.1 MMOL/L (24-32); eGFR 57 ML/MIN
[2018-12-10 05:21] LABS: BASOPHILS % (AUTO) 0.7 % (0-1); EOSINOPHILS # (AUTO) 0.3 X10'3 (0-0.9); EOSINOPHILS % (AUTO) 4.5 % (0-6); HEMATOCRIT 29.4 % (42.0-52.0); HEMOGLOBIN 10.1 g/dl (14.0-17.9); LYMPHOCYTES # (AUTO) 0.9 X10'3 (1.1-4.8); LYMPHOCYTES % (AUTO) 14.5 % (21-51); MEAN CORPUSCULAR HEMOGLOBIN 30.2 PG (27.0-31.0); MEAN CORPUSCULAR HGB CONC 34.2 g/dL (33.0-36.5); MEAN CORPUSCULAR VOLUME 88.4 FL (78-98); MEAN PLATELET VOLUME 7.4 FL (7.4-10.4); MONOCYTES # (AUTO) 0.8 X10'3 (0-0.9); MONOCYTES % (AUTO) 12.7 % (2-12); NEUTROPHILS # (AUTO) 4.4 X10'3 (1.8-7.7); NEUTROPHILS % (AUTO) 67.6 % (42-75); PLATELET COUNT 170 X10'3 (140-440); RED BLOOD COUNT 3.33 X10'6 (4.70-6.10); RED CELL DISTRIBUTION WIDTH 14.5 % (11.5-14.5); WHITE BLOOD COUNT 6.5 X10'3 (4.5-11.0)
[2018-12-10] MEDS: HYDROcodone/acetaminophen 5mg/325mg tablet PO PRN (05:22)
--- NOTE | 2018-12-10 06:30 | NUR ---
Patient in room [facility]. I have received report from Norma HENRY and had the opportunity to ask questions and assume patient care.
--- NOTE | 2018-12-10 06:35 | NUR ---
Problems reprioritized. Patient report given, questions answered & plan of care reviewed with Ila HENRY.
[2018-12-10 07:16] VITALS: BP 126/46
[2018-12-10] MEDS: hydrocortisone 1% cream 28gm TP SCH (08:00)
[2018-12-10] MEDS: TESTOSTERONE TP SCH (08:00)
[2018-12-10] MEDS: pantoprazole 40mg Tablet.DR PO SCH (08:02)
[2018-12-10] MEDS: aspirin 81mg tablet.DR PO SCH (08:02)
[2018-12-10] MEDS: cetirizine 10mg tablet PO SCH (08:02)
[2018-12-10] MEDS: lactobacillus rhamnosus 10,000 MMU CELLS/CAPSULE PO SCH (08:02)
[2018-12-10] MEDS: multivitamins, therapeutics tablet PO SCH (08:02)
[2018-12-10] MEDS: ticagrelor 90mg tablet PO SCH (08:02)
[2018-12-10] MEDS: atorvastatin 20mg tablet PO SCH (08:02)
[2018-12-10] MEDS: cloNIDine 0.1 mg tablet PO SCH (08:02)
[2018-12-10] MEDS: morphine 2 MG/ML inj. syringe IV PRN ×2 (08:03→13:20)
--- NOTE | 2018-12-10 12:14 | NUR ---
WOUND VAC EDUCATION PROVIDED BY WOUND CARE 1. Patient instructed to call the Wound Center or their Home Health Agency immediately if: * They notice a change in the color or amount of the fluid in the canister. * Their wound looks more red than usual or has a foul smell. * The skin around their wound looks reddened or irritated. * The dressing feels loose or appears to be loose. * They experience any increase or changes in their pain. * The alarm will not turn off. 2. Patient instructed that they should not be disconnected from suction for more than 2 hours at a time. * If they are not able to get the suction back on, they need to remove the dressing and take all of the foam out of the wound. * Then moisten sterile gauze with normal saline and place on/in the wound. * Change the dressing once a day until arrangements have been made to replace the wound vac dressing. 3. Patient instructed to turn the wound vac machine OFF and call 911 or go to the ED immediately if their canister fills rapidly with blood. 4. If any of these occur while in the hospital tell a nurse immediately. Addendum: 12/10/18 at 1215 by Morelia Sierra RN Amended: Links added.
[2018-12-10 12:47] VITALS: BP 125/55
[2018-12-10] MEDS: normal saline 1000ml 1,000 ML IV SCH (12:50)
--- NOTE | 2018-12-10 13:47 | NUR ---
Patient discharged with all belongings. Nicole daughter at bedside.
== END 2018-12-10 13:39 | DRG 908 ==
LOC: ER 19:02 → SUR 3N 12-06 01:03 → CMPBEDREQ 12-08 15:15
PROVIDERS: ADMIT Internal Medicine; ATTEND Family Medicine
PROC: 0Y950ZZ Drainage of Right Inguinal Region, Open Approach (ICD-10-PCS; principal; 2018-12-06 11:02)
PROC: 05HY33Z Insertion of Infusion Device into Upper Vein, Percutaneous Approach (ICD-10-PCS; 2018-12-09)
DX: T81.30XA Disruption of wound, unspecified, initial encounter (principal); T81.41XA Infection following a procedure, superficial incisional surgical site, initial encounter; N17.9 Acute kidney failure, unspecified; Z68.41 Body mass index [BMI] 40.0-44.9, adult; E66.01 Morbid (severe) obesity due to excess calories; N18.3 Chronic kidney disease, stage 3 (moderate); Y83.8 Other surgical procedures as the cause of abnormal reaction of the patient, or of later complication, without mention of misadventure at the time of the procedure; B95.2 Enterococcus as the cause of diseases classified elsewhere; B96.20 Unspecified Escherichia coli [E. coli] as the cause of diseases classified elsewhere; E11.22 Type 2 diabetes mellitus with diabetic chronic kidney disease; E78.5 Hyperlipidemia, unspecified; F41.9 Anxiety disorder, unspecified; G47.00 Insomnia, unspecified; I25.10 Atherosclerotic heart disease of native coronary artery without angina pectoris; K21.9 Gastro-esophageal reflux disease without esophagitis; M19.90 Unspecified osteoarthritis, unspecified site; Z79.82 Long term (current) use of aspirin; Y92.89 Other specified places as the place of occurrence of the external cause; Z87.891 Personal history of nicotine dependence; Z88.1 Allergy status to other antibiotic agents; Z95.5 Presence of coronary angioplasty implant and graft; Z88.8 Allergy status to other drugs, medicaments and biological substances
CPT/HCPCS: 36415; 36569; 73110; 73130; 73620; 76937; 80048; 80053; 80202; 83605; 83735; 83880; 84100; 84145; 84550; 85025; 85610; 85651; 86140; 87070; 87075; 87077; 87081; 87186; 93926; 96365; 97116; 97161; 97530; 99285; A4215; A6550; A7000; G0378; J2001; J2250; J2270; J2543; J3010; J3301; J3370; J7030; J7120

== ENCOUNTER 2022-05-28 10:49 | Emergency (ER) | payer MEDICARE, BC ==
[~2022-05-28] VITALS: Ht 177.8 cm; Wt 90.0 kg
[~2022-05-28 10:49] MED LIST changes: -ANDROGEL; -ESOM40SU PO; +OMEP20CA15 PO; +TEST75GE TOP
[2022-05-28 10:56] VITALS: BP 136/63
[2022-05-28 11:45] LABS: CLARITY,URINE CLEAR (Clear); COLOR,URINE YELLOW (Yellow); GLUCOSE, URINE NEGATIVE (Neg); KETONES,URINE NEGATIVE (Neg); LEUKOCYTE ESTERASE ,URINE NEGATIVE (Neg); NITRITES, URINE NEGATIVE (Neg); OCCULT BLOOD,URINE NEGATIVE (Neg); PROTEIN,URINE TRACE mg/dl (Neg); UROBILINOGEN,URINE 0.2 E.U/dL (0.2-1.0)
[2022-05-28 11:54] LABS: UA COLLECTION TYPE CLN CATCH MIDSTREAM
[2022-05-28 11:56] LABS: HYALINE CASTS 0-3 /LPF (NEGATIVE); MUCUS STRANDS MODERATE /LPF (Neg); SQUAMOUS EPITHELIAL CELL,UR FEW /LPF (FEW)
[2022-05-28 11:57] LABS: BACTERIA,URINE FEW /HPF (Neg); RBC,URINE 0-2 /HPF (0-2); WBC,URINE 0-4 /HPF (0-4)
[2022-05-28 12:16] LABS: BASOPHILS # (AUTO) 0.1 X10'3 (0-0.2); BASOPHILS % (AUTO) 0.7 % (0-1); EOSINOPHILS # (AUTO) 0.1 X10'3 (0-0.9); EOSINOPHILS % (AUTO) 0.7 % (0-6); HEMATOCRIT 41.9 % (42.0-52.0); HEMOGLOBIN 13.9 g/dl (14.0-17.9); LYMPHOCYTES # (AUTO) 1.2 X10'3 (1.1-4.8); LYMPHOCYTES % (AUTO) 12.4 % (21-51); MEAN CORPUSCULAR HEMOGLOBIN 30.6 PG (27.0-31.0); MEAN CORPUSCULAR HGB CONC 33.2 g/dL (33.0-36.5); MEAN CORPUSCULAR VOLUME 92.3 FL (78-98); MEAN PLATELET VOLUME 8.1 FL (7.4-10.4); MONOCYTES % (AUTO) 10.3 % (2-12); NEUTROPHILS # (AUTO) 7.4 X10'3 (1.8-7.7); NEUTROPHILS % (AUTO) 75.9 % (42-75); PLATELET COUNT 169 X10'3 (140-440); RED BLOOD COUNT 4.54 X10'6 (4.70-6.10); RED CELL DISTRIBUTION WIDTH 14.5 % (11.5-14.5); WHITE BLOOD COUNT 9.7 X10'3 (4.5-11.0)
[2022-05-28 12:27] LABS: ALANINE AMINOTRANSFERASE 22 U/L (12-78); ALBUMIN 3.7 G/DL (3.4-5.0); ALBUMIN/GLOBULIN RATIO 1.1 (1.1-1.5); ALKALINE PHOSPHATASE 92 IU/L (46-116); ANION GAP 4 (8-16); ASPARTATE AMINO TRANSFERASE 22 U/L (10-37); BILIRUBIN,TOTAL 0.5 MG/DL (0.1-1.0); BLOOD UREA NITROGEN 18 MG/DL (7-18); BUN/CREATININE RATIO 13.5 (5.4-32.0); CALCIUM 8.2 MG/DL (8.5-10.1); CHLORIDE 106 MMOL/L (99-107); CREATININE 1.33 MG/DL (0.60-1.10); GLUCOSE 115 MG/DL (70-104); POTASSIUM 3.6 MMOL/L (3.5-5.1); SODIUM 141 MMOL/L (135-145); TOTAL CARBON DIOXIDE 31.5 MMOL/L (24-32); TOTAL PROTEIN 7.2 G/DL (6.4-8.2); eGFR 51 ML/MIN
== END 2022-05-28 13:15 | disposition home or self-care (01) ==
LOC: ER 10:49
DX: R10.31 Right lower quadrant pain (principal); K21.9 Gastro-esophageal reflux disease without esophagitis; E11.9 Type 2 diabetes mellitus without complications; Z91.041 Radiographic dye allergy status
CPT/HCPCS: 36415; 80053; 81001; 85025; 99283

== ENCOUNTER 2023-04-11 11:16 | Emergency (ER) | payer MEDICARE, BC ==
[~2023-04-11] VITALS: Ht 180.3 cm; Wt 104.6 kg
[2023-04-11 13:13] LABS: BILIRUBIN,URINE NEGATIVE (Neg); CLARITY,URINE CLOUDY (Clear); COLOR,URINE YELLOW (Yellow); GLUCOSE, URINE NEGATIVE (Neg); KETONES,URINE NEGATIVE (Neg); LEUKOCYTE ESTERASE ,URINE LARGE (Neg); NITRITES, URINE NEGATIVE (Neg); OCCULT BLOOD,URINE MODERATE (Neg); PH,URINE 6.5 (4.8-8.0); PROTEIN,URINE NEGATIVE (Neg); UROBILINOGEN,URINE 0.2 E.U/dL (0.2-1.0)
[2023-04-11 13:27] LABS: UA COLLECTION TYPE CLN CATCH MIDSTREAM
[2023-04-11 13:52] LABS: RBC,URINE TNTC /HPF (0-2); WBC,URINE TNTC /HPF (0-4)
[2023-04-11 13:58] LABS: MUCUS STRANDS FEW /LPF (Neg)
[2023-04-11 14:00] LABS: CAL OXALATE CRYSTALS FEW /HPF (NEGATIVE); SQUAMOUS EPITHELIAL CELL,UR FEW /LPF (FEW)
[2023-04-11] MEDS ORDERED: SULF1TAB49 PO ×2 (14:00)
[2023-04-11 14:02] LABS: BACTERIA,URINE 1+ /HPF (Neg)
[2023-04-11 14:16] VITALS: BP 153/67; PULSE 69; RESP 16; TEMP 98; O2SAT 96
[2023-04-16] MEDS ORDERED: AMLO10TA13 PO (03:01)
[2023-04-16] MEDS ORDERED: ALLO300T8 PO (03:01)
[2023-04-16] MEDS ORDERED: FLO0.4C (03:04)
[2023-04-16] MEDS ORDERED: METF-436 PO (03:04)
[2023-04-16] MEDS ORDERED: ROSU40TA22 PO (03:04)
[2023-04-16] MEDS ORDERED: IBAN150T21 PO (03:04)
[2023-04-16] MEDS ORDERED: FURO20TA4 PO (03:04)
[2023-04-17] MEDS ORDERED: CEFD300C3 PO (13:05)
[2023-04-17] MEDS ORDERED: LACT1CAP26 PO (13:05)
== END 2023-04-11 14:22 | disposition home or self-care (01) ==
LOC: ER 11:16
DX: N39.0 Urinary tract infection, site not specified (principal); I10 Essential (primary) hypertension; K21.9 Gastro-esophageal reflux disease without esophagitis; Z88.8 Allergy status to other drugs, medicaments and biological substances; Z79.899 Other long term (current) drug therapy
CPT/HCPCS: 76770; 81001; 87088; 99284